=== PATIENT | female | born 1955 | race Caucasian/White ===

== ENCOUNTER 2019-04-05 07:53 | Inpatient (IN) | payer OTHER ==
[~2019-04-05] VITALS: Ht 167.6 cm; Wt 120.2 kg
[2019-04-05] MEDS ORDERED: METFO PO (08:25)
[2019-04-05] MEDS ORDERED: [UNRECOGNIZED DRUG - OTHER] (08:26)
[2019-04-05] MEDS ORDERED: ATENOLOL-CHLORT1 TAB PO (08:27)
[2019-04-05] MEDS ORDERED: ZOCOR40 MG (08:27)
[2019-04-05] MEDS ORDERED: NOVA MAX BLOOD1 EACH (08:28)
[2019-04-05] MEDS ORDERED: LANTUS (08:28)
[2019-04-05] MEDS ORDERED: LOSARTAN PO (08:29)
[2019-04-05] MEDS ORDERED: LANTUS SOL100 UNIT/1 SUBCUTANEO (11:09)
[2019-04-05] MEDS ORDERED: FORTAMET1000 MG PO (11:09)
[2019-04-05] MEDS ORDERED: HUMULIN R500 UNIT/2 SUBCUTANEO (11:10)
[2019-04-05] MEDS ORDERED: COZAAR100 MG PO (11:11)
[2019-04-05] MEDS ORDERED: GLYXAMBI 25 MG1 EACH PO (11:11)
[2019-04-12] MEDS ORDERED: INTEGRA PLUS C1 EACH PO (15:17)
[2019-04-12] MEDS ORDERED: OXYC1TAB9 PO (15:17)
[2019-04-12] MEDS ORDERED: XARELTO10 MG PO (15:17)
== END 2019-04-12 19:57 | DRG 470 ==
LOC: EDSTATUS 12:30 → ADM 12:30 → SURH 04-10 05:52 → O/R 04-10 05:52 → SURH 04-10 07:00
PROVIDERS: ADMIT Orthopaedic Surgery Sports Medicine
PROC: 0SRD0J9 Replacement of Left Knee Joint with Synthetic Substitute, Cemented, Open Approach (ICD-10-PCS; principal; 2019-04-10 07:00)
DX: M17.12 Unilateral primary osteoarthritis, left knee (principal); I10 Essential (primary) hypertension; E11.9 Type 2 diabetes mellitus without complications